=== PATIENT | male | born 1995 | race Hispanic/Latino ===

== ENCOUNTER 2017-03-30 22:01 | Inpatient (IN) | payer MEDICAID ==
--- NOTE | 2017-03-30 23:17 | C.PDOC ---
History Of Present Illness patient wants detox from alcohol and opioid abuse. Last used today, oxycintin 30 mg (2 pills). Denies any suicidal or homicidal ideation Time Seen by Provider: 03/30/17 23:17 Chief Complaint (Nursing): Substance Abuse History Per: Patient History/Exam Limitations: no limitations Onset/Duration Of Symptoms: Hrs Current Symptoms Are (Timing): Still Present Suicide/Self Injury Attempted (Context): None Modifying Factor(s): Alcohol, Narcotics Severity: None Associated Symptoms: denies: Suicidal Thoughts, Suicidal Plan Involuntary Hold By: None Recent travel outside of the [place] States: No Additional History Per: Patient Past Medical History Reviewed: Historical Data, Nursing Documentation, Vital Signs Vital Signs: Last Vital Signs Temp 98.6 F 03/31/17 01:19 Pulse 61 03/31/17 01:19 Resp 19 03/31/17 01:19 BP 128/69 03/31/17 01:19 Pulse Ox 97 03/31/17 01:19 - Medical History PMH: Asthma, Depression Denies: Diabetes, Hepatitis, HIV, HTN, Seizures, Sexually Transmitted Disease - [facility] Procedures DRUG DETOXIFICATION (10/06/14) Family History: States: No Known Family Hx - Social History Hx Tobacco Use: Yes Hx Alcohol Use: Yes Hx Substance Use: Yes - Immunization History Hx Tetanus Toxoid Vaccination: No Hx Influenza Vaccination: Yes Hx Pneumococcal Vaccination: No Review Of Systems Constitutional: Negative for: Fever Eyes: Negative for: Redness ENT: Negative for: Throat Pain Cardiovascular: Negative for: Chest Pain Respiratory: Negative for: Shortness of Breath Gastrointestinal: Negative for: Nausea Musculoskeletal: Negative for: Back Pain Skin: Negative for: Rash Neurological: Negative for: Weakness Psych: Negative for: Anxiety Physical Exam - Physical Exam Appears: Non-toxic, No Acute Distress Skin: Warm, Dry Head: Normacephalic Eye(s): bilateral: Normal Inspection Oral Mucosa: Moist Neck: Supple Lymphatic: Adenopathy Cardiovascular: Rhythm Regular Respiratory: No Rales, No Rhonchi, No Wheezing Gastrointestinal/Abdominal: Soft, No Tenderness Back: Normal Inspection Extremity: Normal ROM Extremity: Bilateral: Atraumatic Pulses: Left Dorsalis Pedis: Normal, Right Dorsalis Pedis: Normal Neurological/Psych: Oriented x3 Gait: Steady ED Course And Treatment - Laboratory Results Result Diagrams: 03/30/17 23:38 03/30/17 23:38 O2 Sat by Pulse Oximetry: [address].: Carlos Bacon Comment: accepted the pt on his service and took over the care at 1:30 AM Doctor Will See Patient In The: Hospital Counseled Patient/Family Regarding: Studies Performed, Diagnosis - Disposition Disposition: HOSPITALIZED Disposition Time: 23:17 Condition: FAIR Forms: [facility] (Irish) - POA Present On Arrival: None - Clinical Impression Clinical Impression: Opiate dependence Decision To Admit - Pt Status Changed To: Hospital Disposition Of: Inpatient - Admit Certification Admit to Inpatient:: After my assessment, the patient will require hospitalization for at least two midnights. This is because of the severity of symptoms shown, intensity of services needed, and/or the medical risk in this patient being treated as an outpatient. - InPatient: Physician Admission Certification: I certify that this patient requires 2 or more midnights of care for the following reason:: After my assessment, the patient will require hospitalization for at least two midnights. This is because of the severity of symptoms shown, intensity of services needed, and/or the medical risk in this patient being treated as an outpatient. - . Bed Request Type: Detox Admitting Physician: Carlos Bacon Patient Diagnosis: Opiate dependence
[2017-03-30 23:45] LABS: EOS # 0.1 K/uL (0.0-0.7); LYMPH # 2.9 K/uL (1.0-4.3); NEUT # 4.8 K/uL (1.8-7.0); RED CELL DISTRIBUTION WIDTH 13.7 % (11.5-14.5); URINE BILIRUBIN NEGATIVE (NEGATIVE); URINE BLOOD NEGATIVE (NEGATIVE); URINE CLARITY Clear (Clear); URINE COLOR Yellow (YELLOW); URINE GLUCOSE (UA) NORMAL (Normal); URINE LEUKOCYTE ESTERASE NEG Leu/uL (Negative); URINE NITRATE NEGATIVE (NEGATIVE); URINE PROTEIN NEGATIVE (NEGATIVE); URINE UROBILINOGEN NORMAL mg/dL (0.2-1.0)
[2017-03-30 23:48] LABS: BASO % 0.4 % (0.0-2.0); EOS % 1.5 % (0.0-4.0); HEMOGLOBIN 14.9 g/dL (12.0-18.0); LYMPH % 34.4 % (20.0-40.0); MEAN CELL VOLUME 84.7 fL (80.0-94.0); MEAN CORPUSCULAR HEMOGLOBIN 29.4 pg (27.0-31.0); MEAN CORPUSCULAR HGB CONC 34.7 g/dL (33.0-37.0); MEAN PLATELET VOLUME 9.6 fL (7.2-11.7); MONO # 0.6 K/uL (0.0-0.8); MONO % 7.6 % (0.0-10.0); NEUT % 56.1 % (50.0-75.0); RBC 5.05 Mil/uL (4.40-5.90)
[2017-03-30 23:49] LABS: WHITE BLOOD COUNT 8.5 K/uL (4.8-10.8)
[2017-03-30 23:57] LABS: ALB/GLOB RATIO 1.4 (1.0-2.1); ALBUMIN 4.3 g/dL (3.5-5.0); ALT/SGPT 72 U/L (21-72); AST/SGOT 42 U/L (17-59); BLOOD UREA NITROGEN 12 mg/dL (9-20); CALCIUM 9.1 mg/dl (8.6-10.4); GFR AFRICAN-AMERICAN > 60; GFR NON-AFRICAN AMERICAN > 60
[2017-03-31 00:03] LABS: BARBITURATES, UR NEGATIVE (NEGATIVE); BENZODIAZEPINES, UR NEGATIVE (NEGATIVE)
[2017-03-31 00:18] LABS: PHENCYCLIDINE, UR NEGATIVE (NEGATIVE)
[2017-03-31 00:26] LABS: OPIATES, UR POSITIVE (NEGATIVE)
[2017-03-31 01:32] VITALS: O2SAT 98
[2017-03-31] MEDS ORDERED: Albuterol HFA 90 mcg/actuation (8 g) INH PRN (04:37)
--- NOTE | 2017-03-31 05:45 | PCM.BM ---
<Aakash Verdugo - Last Filed: 03/31/17 05:43> Treatment Plan Problems - Problems identified on initial assessmt Opiates Abuse Date Initiated: 03/31/17 Time Initiated: 02:10 Assessment reference: NA Status: Active ETOH Abuse Date Initiated: 03/31/17 Time Initiated: 02:10 Assessment reference: NA Status: Active Treatment assets and liabiliti Patient Assests: good support system Patient Liabilities: substance abuse - Milieu Protocol Maintain good personal hygiene: daily Encourage regular showers, daily Remind patient to perform daily oral care Maintain personal safety: every shift Educate patient to report safety concerns to staff, every shift Monitor environment for contraband/sharps Medication safety: Monitor for expected outcome, potential side effects: every shift, Assess barriers to learning: every shift, Assess readiness for medication education: every shift <Shital Villasenor - Last Filed: 03/31/17 08:54> - Diagnosis (1) Opiate dependence Status: Acute Interventions: 03/31/17 08:54 * Assess 7x/week regarding severity of withdrawal * Educate regarding risks, benefits, side effects and alternatives of medications * Use Motivational Interviewing for abstinence * Use CBT for relapse prevention * Medication management for withdrawal symptoms * Encourage medication assisted treatment *
[2017-03-31 06:46] VITALS: RESP 18
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
[2017-03-31 09:42] VITALS: BP 95/65; PULSE 61; TEMP 97.6
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
== END 2017-03-31 13:32 | disposition left against medical advice (07) | DRG 894 ==
LOC: C.ER 22:01 → C.7D 03-31 01:29
DX: F11.20 Opioid dependence, uncomplicated (principal); F10.20 Alcohol dependence, uncomplicated; F17.210 Nicotine dependence, cigarettes, uncomplicated; F31.9 Bipolar disorder, unspecified

== ENCOUNTER 2017-06-04 00:52 | Emergency (ER) | payer MEDICAID ==
--- NOTE | 2017-06-04 03:50 | C.PDOC ---
History Of Present Illness 21 year old male presents to the ER requesting detox from heroin. Patient is also complaining of bilateral foot pain. Denies other complaints at this time. Time Seen by Provider: 06/04/17 02:04 Chief Complaint (Nursing): Substance Abuse History Per: Patient History/Exam Limitations: no limitations Onset/Duration Of Symptoms: Days Current Symptoms Are (Timing): Still Present Suicide/Self Injury Attempted (Context): None Involuntary Hold By: None Recent travel outside of the [place]: No Past Medical History Reviewed: Historical Data, Nursing Documentation, Vital Signs Vital Signs: Last Vital Signs Temp 98.6 F 06/04/17 05:45 Pulse 89 06/04/17 05:45 Resp 20 06/04/17 05:45 BP 123/66 06/04/17 05:45 Pulse Ox 96 06/04/17 05:45 - Medical History PMH: Asthma, Depression - [facility] Procedures DRUG DETOXIFICATION (10/06/14) Family History: States: Unknown Family Hx - Social History Hx Tobacco Use: Yes Hx Alcohol Use: No Hx Substance Use: Yes (HEROIN IV) - Immunization History Hx Tetanus Toxoid Vaccination: No Hx Influenza Vaccination: Yes Hx Pneumococcal Vaccination: No Review Of Systems Constitutional: Negative for: Fever, Chills Gastrointestinal: Negative for: Nausea, Vomiting Musculoskeletal: Positive for: Foot Pain Neurological: Negative for: Weakness, Numbness Physical Exam - Physical Exam Appears: Non-toxic, No Acute Distress Skin: Normal Color, Warm, Dry Head: Atraumatic, Normacephalic Eye(s): bilateral: Normal Inspection Oral Mucosa: Moist Chest: Symmetrical, No Tenderness Cardiovascular: Rhythm Regular Respiratory: Normal Breath Sounds, No Rales, No Rhonchi, No Wheezing Gastrointestinal/Abdominal: Soft, No Tenderness Extremity: Capillary Refill (<2 seconds), No Deformity, Other (Pressure ulcers at soles, pink. No erythema, drainage, or discharge.) Neurological/Psych: Oriented x3, Normal Speech, Normal Motor, Normal Sensation Gait: Steady ED Course And Treatment O2 Sat by Pulse Oximetry: 98 (Room air) Pulse Ox Interpretation: Normal Progress Note: Patient was seen and evaluated by juan carlos who informed patient there are no detox beds available. Patient is requesting to sleep for while before discharge, will allow to sleep before discharge. On reeval. pt is fully ambulatory, AAOx3, stable for discharge. Advised to call crisis office to get prescreened for detox as beds become available Disposition - Disposition Disposition: HOME/ ROUTINE Disposition Time: 06:35 Condition: STABLE Additional Instructions: Please call CRISIS at [phone] Return to ER if worse Instructions: Opioid Use Disorder Forms: [facility] (Serbian) - Clinical Impression Clinical Impression: Drug abuse, Opiate dependence - PA / DIRECTOR OF CLINICAL EDUCATION / Resident Statement MD/DO has reviewed & agrees with the documentation as recorded. - Scribe Statement The provider has reviewed the documentation as recorded by the Scribe Marquise Ponce All medical record entries made by the Noreen were at my direction and personally dictated by me. I have reviewed the chart and agree that the record accurately reflects my personal performance of the history, physical exam, medical decision making, and the department course for this patient. I have also personally directed, reviewed, and agree with the discharge instructions and disposition.
[2017-06-04 05:46] VITALS: PULSE 89
[2017-06-04 07:01] VITALS: BP 120/64; RESP 18; TEMP 98.5; O2SAT 97
== END 2017-06-04 07:00 | disposition home or self-care (01) ==
LOC: SUPCPDRO 00:52 → C.ER 00:52
DX: F11.20 Opioid dependence, uncomplicated (principal)

== ENCOUNTER 2017-06-18 23:52 | Emergency (ER) | payer MEDICAID ==
--- NOTE | 2017-06-19 00:40 | C.PDOC ---
Time Seen by Provider: 06/19/17 00:23 Chief Complaint (Nursing): Psychiatric Evaluation History Per: Patient Onset/Duration Of Symptoms: Days Current Symptoms Are (Timing): Still Present Suicide/Self Injury Attempted (Context): Other (Heroin) Modifying Factor(s): Narcotics, Cocaine Severity: Moderate Associated Symptoms: Depression, Suicidal Thoughts Additional History Per: Prior Records Past Medical History Reviewed: Historical Data, Nursing Documentation, Vital Signs Vital Signs: Last Vital Signs Temp 97.7 F 06/19/17 06:49 Pulse 68 06/19/17 06:49 Resp 16 06/19/17 06:49 BP 123/55 L 06/19/17 06:49 Pulse Ox 99 06/19/17 06:49 - Medical History PMH: Asthma, Bipolar Disorder, Depression, Hepatitis (C), HIV Surgical History: No Surg Hx - [facility] Procedures DRUG DETOXIFICATION (10/06/14) Family History: States: Unknown Family Hx - Social History Hx Tobacco Use: Yes Hx Alcohol Use: No Hx Substance Use: Yes (HEROIN IV, cocaine) - Immunization History Hx Tetanus Toxoid Vaccination: No Hx Influenza Vaccination: Yes Hx Pneumococcal Vaccination: No Review Of Systems Except As Marked, All Systems Reviewed And Found Negative. Constitutional: Negative for: Fever Cardiovascular: Negative for: Chest Pain Respiratory: Negative for: Shortness of Breath Gastrointestinal: Negative for: Vomiting, Abdominal Pain Musculoskeletal: Negative for: Neck Pain Neurological: Negative for: Weakness, Numbness Physical Exam - Physical Exam Appears: Non-toxic, No Acute Distress Skin: Normal Color, Warm, Dry Head: Atraumatic, Normacephalic Eye(s): bilateral: PERRL, EOMI Neck: Normal ROM, Supple Cardiovascular: Rhythm Regular Respiratory: Normal Breath Sounds, No Accessory Muscle Use Gastrointestinal/Abdominal: Soft, No Tenderness Extremity: Normal ROM, Other (Track napier on arms) Neurological/Psych: Oriented x3, Normal Motor, Normal Sensation ED Course And Treatment - Laboratory Results Result Diagrams: 06/19/17 01:01 06/19/17 01:01 ECG: Interpreted By Me, Viewed By Me ECG Rhythm: Sinus Rhythm ECG Interpretation: No Acute Changes Rate From EC O2 Sat by Pulse Oximetry: 97 Pulse Ox Interpretation: Normal - Radiology CXR: Interpreted by Me, Viewed By Me CXR Interpretation: Yes: No Acute Disease Progress Note: Pt is medically stable for psych admission. Disposition - Disposition Disposition Time: :02 Condition: STABLE Forms: [email or web address] (Angolan) - Clinical Impression Clinical Impression: Depression, Drug abuse Physician Patient Turnover Patient Signed Over To: Mary Wolfe Handoff Comments: pending psychiatric transfer.
[2017-06-19 01:04] LABS: BASO % 0.8 % (0.0-2.0); EOS # 0.2 K/uL (0.0-0.7); EOS % 3.5 % (0.0-4.0); HEMOGLOBIN 14.1 g/dL (12.0-18.0); LYMPH # 1.9 K/uL (1.0-4.3); LYMPH % 34.6 % (20.0-40.0); MEAN CELL VOLUME 85.4 fL (80.0-94.0); MEAN CORPUSCULAR HEMOGLOBIN 29.7 pg (27.0-31.0); MEAN CORPUSCULAR HGB CONC 34.8 g/dL (33.0-37.0); MEAN PLATELET VOLUME 9.3 fL (7.2-11.7); MONO # 0.8 K/uL (0.0-0.8); MONO % 14.2 % (0.0-10.0); NEUT # 2.6 K/uL (1.8-7.0); NEUT % 46.9 % (50.0-75.0); NRBC % 0.1 % (0.0-2.0); RBC 4.75 Mil/uL (4.40-5.90); RED CELL DISTRIBUTION WIDTH 13.1 % (11.5-14.5); WHITE BLOOD COUNT 5.5 K/uL (4.8-10.8)
[2017-06-19 01:18] LABS: ACETAMINOPHEN < 10.0 ug/mL (10.0-30.0); ALB/GLOB RATIO 1.3 (1.0-2.1); ALBUMIN 3.9 g/dL (3.5-5.0); ALT/SGPT 38 U/L (21-72); AST/SGOT 32 U/L (17-59); BLOOD UREA NITROGEN 10 mg/dL (9-20); GFR AFRICAN-AMERICAN > 60; GFR NON-AFRICAN AMERICAN > 60; SALICYLATE < 1.0 mg/dL 1
[2017-06-19 01:27] LABS: SQUAMOUS EPITHIAL < 1 /hpf (0-5); URINE BACTERIA RARE (<OCC); URINE BILIRUBIN 1+ (NEGATIVE); URINE BLOOD NEGATIVE (NEGATIVE); URINE CLARITY Hazy (Clear); URINE COLOR Amber (YELLOW); URINE GLUCOSE (UA) NORMAL (Normal); URINE LEUKOCYTE ESTERASE NEG Leu/uL (Negative); URINE PROTEIN 1+ mg/dL (NEGATIVE)
[2017-06-19 02:00] LABS: BARBITURATES, UR NEGATIVE (NEGATIVE); BENZODIAZEPINES, UR NEGATIVE (NEGATIVE); PHENCYCLIDINE, UR NEGATIVE (NEGATIVE)
[2017-06-19 02:27] LABS: OPIATES, UR POSITIVE (NEGATIVE)
--- NOTE | 2017-06-19 08:39 | RAD ---
PROCEDURE: CHEST RADIOGRAPH, 1 VIEW HISTORY: Psych clearance COMPARISON: None available. FINDINGS: LUNGS: Clear. PLEURA: No pneumothorax or pleural fluid seen. CARDIOVASCULAR: Normal. OSSEOUS STRUCTURES: No significant abnormalities. VISUALIZED UPPER ABDOMEN: Normal. OTHER FINDINGS: None. IMPRESSION: No active disease.
[2017-06-19 10:13] VITALS: BP 101/57; PULSE 60; RESP 18; TEMP 98.2; O2SAT 98
== END 2017-06-19 10:32 | disposition short-term general hospital (02) ==
LOC: C.ER 23:52
DX: F32.9 Major depressive disorder, single episode, unspecified (principal); F19.10 Other psychoactive substance abuse, uncomplicated

== ENCOUNTER 2017-08-20 19:35 | Emergency (ER) | payer MEDICAID ==
[2017-08-20 19:35] VITALS: BMI 23.1
--- NOTE | 2017-08-20 20:09 | C.PDOC ---
History Of Present Illness 21-year-old male, presents to the emergency department requesting detox from alcohol and heroin. Patient denies SI/HI, nausea/vomiting, fever, chills, chest pain, shortness of breath or any other associated symptoms. No other complaints at this time. Last use was yesterday Chief Complaint (Nursing): Substance Abuse History Per: Patient History/Exam Limitations: no limitations Current Symptoms Are (Timing): Still Present Severity: Moderate Past Medical History Reviewed: Historical Data, Nursing Documentation, Vital Signs Vital Signs: Last Vital Signs Temp 97.9 F 08/20/17 22:39 Pulse 68 08/20/17 22:39 Resp 20 08/20/17 22:39 BP 111/57 L 08/20/17 22:39 Pulse Ox 99 08/20/17 22:39 - Medical History PMH: Anxiety, Asthma, Bipolar Disorder, Depression, Hepatitis (C), HIV Denies: Diabetes, HTN, Seizures, Sexually Transmitted Disease - [facility] Procedures DRUG DETOXIFICATION (10/06/14) GROUP PSYCHOTHERAPY (06/19/17) INDIV PSYCHOTHERAPY FOR SUBSTANCE ABUSE, COGNITIV BEHAVIORAL (06/19/17) INDIVIDUAL PSYCHOTHERAPY, COGNITIVE-BEHAVIORAL (06/19/17) Family History: States: No Known Family Hx - Social History Hx Tobacco Use: Yes Hx Alcohol Use: Yes Hx Substance Use: Yes (HEROIN IV, cocaine) - Immunization History Hx Tetanus Toxoid Vaccination: No Hx Influenza Vaccination: Yes Hx Pneumococcal Vaccination: No Review Of Systems Constitutional: Negative for: Fever, Chills Cardiovascular: Negative for: Chest Pain, Palpitations Respiratory: Negative for: Shortness of Breath Gastrointestinal: Negative for: Nausea, Vomiting Neurological: Negative for: Weakness, Numbness, Headache, Dizziness Physical Exam - Physical Exam Appears: Non-toxic, No Acute Distress Skin: Normal Color, Warm, Dry, No Rash Head: Atraumatic, Normacephalic Eye(s): bilateral: Normal Inspection, PERRL, EOMI Nose: Normal Oral Mucosa: Moist Neck: Normal ROM Cardiovascular: Rhythm Regular, No Murmur Respiratory: Normal Breath Sounds, No Accessory Muscle Use Extremity: Normal ROM, No Deformity, No Swelling Neurological/Psych: Oriented x3, Normal Speech ED Course And Treatment - Laboratory Results Result Diagrams: 08/20/17 21:01 08/20/17 21:01 O2 Sat by Pulse Oximetry: 96 (RA) Pulse Ox Interpretation: Normal Disposition - Disposition Referrals: [facility] [Outside] [facility] [Outside] Disposition: HOME/ ROUTINE Disposition Time: 21:55 Condition: GOOD Additional Instructions: FELIPE ADAMS, thank you for letting us take care of you today. Your provider was Ras Martin DO and you were treated for DETOX. The emergency medical care you received today was directed at your acute symptoms. If you were prescribed any medication, please fill it and take as directed. It may take several days for your symptoms to resolve. Return to the Emergency Department if your symptoms worsen, do not improve, or if you have any other problems. Please contact your doctor or call one of the physicians/clinics you have been referred to that are listed on the Patient Visit Information form that is included in your discharge packet. Bring any paperwork you were given at discharge with you along with any medications you are taking to your follow up visit. Our treatment cannot replace ongoing medical care by a primary care provider outside of the emergency department. Thank you for allowing the [facility] team to be part of your care today. Follow up with the crisis team tomorrow for detox bed availability. Follow up with the clinic for outpatient medical care. Instructions: Drug Abuse and Drug Addiction (DC) Forms: [employer] (Latvian) - Clinical Impression Clinical Impression: Drug dependence - Scribe Statement The provider has reviewed the documentation as recorded by the Scribe (Celina Hernández) All medical record entries made by the Scribe were at my direction and personally dictated by me. I have reviewed the chart and agree that the record accurately reflects my personal performance of the history, physical exam, medical decision making, and the department course for this patient. I have also personally directed, reviewed, and agree with the discharge instructions and disposition.
[2017-08-20 21:05] LABS: BASO # 0.1 K/uL (0.0-0.2); BASO % 0.6 % (0.0-2.0); EOS # 0.1 K/uL (0.0-0.7); EOS % 0.7 % (0.0-4.0); HEMOGLOBIN 14.4 g/dL (12.0-18.0); LYMPH # 1.3 K/uL (1.0-4.3); LYMPH % 14.9 % (20.0-40.0); MEAN CELL VOLUME 84.3 fL (80.0-94.0); MEAN CORPUSCULAR HEMOGLOBIN 28.3 pg (27.0-31.0); MEAN CORPUSCULAR HGB CONC 33.5 g/dL (33.0-37.0); MEAN PLATELET VOLUME 9.1 fL (7.2-11.7); MONO # 0.6 K/uL (0.0-0.8); MONO % 6.9 % (0.0-10.0); NEUT # 6.9 K/uL (1.8-7.0); NEUT % 76.9 % (50.0-75.0); NRBC % 0.2 % (0.0-2.0); RBC 5.11 Mil/uL (4.40-5.90); RED CELL DISTRIBUTION WIDTH 13.3 % (11.5-14.5); WHITE BLOOD COUNT 8.9 K/uL (4.8-10.8)
[2017-08-20 21:20] LABS: ALB/GLOB RATIO 1.4 (1.0-2.1); ALBUMIN 4.6 g/dL (3.5-5.0); ALT/SGPT 55 U/L (21-72); AST/SGOT 37 U/L (17-59); BLOOD UREA NITROGEN 13 mg/dL (9-20); CALCIUM 9.4 mg/dl (8.6-10.4); GFR AFRICAN-AMERICAN > 60; GFR NON-AFRICAN AMERICAN > 60
[2017-08-20 22:41] VITALS: BP 111/57; PULSE 68; RESP 20; TEMP 97.9
[2017-08-21 00:34] VITALS: O2SAT 96
== END 2017-08-20 22:39 | disposition home or self-care (01) ==
LOC: C.ER 19:35
DX: F19.20 Other psychoactive substance dependence, uncomplicated (principal)

== ENCOUNTER 2017-12-03 00:08 | Emergency (ER) | payer SELFPAY ==
[2017-12-03 00:08] VITALS: BMI 23.1
--- NOTE | 2017-12-03 00:52 | C.PDOC ---
History Of Present Illness MONIE, presents to the ED due to public intoxication after being found on the street. The patient admits to using heroin and cocaine. The patient denies any SI or HI. He offers no further medical complaints at this time. Time Seen by Provider: 12/03/17 00:52 Chief Complaint (Nursing): Substance Abuse History Per: Patient History/Exam Limitations: no limitations Onset/Duration Of Symptoms: Hrs Current Symptoms Are (Timing): Still Present Suicide/Self Injury Attempted (Context): None Modifying Factor(s): Cocaine, Other (Heroin) Severity: None Associated Symptoms: denies: Paranoia Recent travel outside of the [place]: No Additional History Per: EMS Past Medical History Reviewed: Historical Data, Nursing Documentation, Vital Signs Vital Signs: Last Vital Signs Temp 98.6 F 12/03/17 00:23 Pulse 84 12/03/17 00:23 Resp 20 12/03/17 00:23 BP 117/69 12/03/17 00:23 Pulse Ox 99 12/03/17 00:23 - Medical History PMH: Anxiety, Asthma, Bipolar Disorder, Depression, Hepatitis (C), HIV Denies: Diabetes, HTN, Seizures, Sexually Transmitted Disease Surgical History: No Surg Hx - [facility] Procedures DRUG DETOXIFICATION (10/06/14) GROUP PSYCHOTHERAPY (06/19/17) INDIV PSYCHOTHERAPY FOR SUBSTANCE ABUSE, COGNITIV BEHAVIORAL (06/19/17) INDIVIDUAL PSYCHOTHERAPY, COGNITIVE-BEHAVIORAL (06/19/17) Family History: States: Unknown Family Hx - Social History Hx Tobacco Use: Yes Hx Alcohol Use: Yes Hx Substance Use: Yes (HEROIN IV, cocaine) - Immunization History Hx Tetanus Toxoid Vaccination: No Hx Influenza Vaccination: Yes Hx Pneumococcal Vaccination: No Review Of Systems Review Of Systems: ROS cannot be obtained secondary to pt's inabilty to answer questions. Constitutional: Negative for: Fever Psych: Negative for: Suicidal ideation Physical Exam - Physical Exam Appears: Non-toxic, No Acute Distress Skin: Warm, Dry Head: Normacephalic Eye(s): bilateral: Normal Inspection Oral Mucosa: Moist Neck: Trachea Midline, Supple Chest: Symmetrical Cardiovascular: Rhythm Regular Respiratory: No Rales, No Rhonchi, No Wheezing Gastrointestinal/Abdominal: Soft, No Tenderness, No Distention Extremity: Normal ROM Extremity: Bilateral: Normal Color And Temperature Neurological/Psych: Oriented x3 Gait: Steady ED Course And Treatment O2 Sat by Pulse Oximetry: 99 (RA) Pulse Ox Interpretation: Normal Reevaluation Time: 05:35 Reassessment Condition: Improved Disposition Counseled Patient/Family Regarding: Studies Performed, Diagnosis, Need For Followup - Disposition Referrals: [facility] [Outside] Disposition: HOME/ ROUTINE Disposition Time: 00:52 Condition: FAIR Instructions: Polysubstance Abuse (DC) Forms: [employer] (Micronesian) - Clinical Impression Clinical Impression: Polysubstance abuse - 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 - Scribe Statement The provider has reviewed the documentation as recorded by the Scribe (Joi Albrecht) Provider Attestation: All medical record entries made by the Scribe were at my direction and personally dictated by me. I have reviewed the chart and agree that the record accurately reflects my personal performance of the history, physical exam, medical decision making, and the department course for this patient. I have also personally directed, reviewed, and agree with the discharge instructions and disposition.
[2017-12-03 05:51] VITALS: BP 115/49; PULSE 76; RESP 20; TEMP 97.8; O2SAT 96
== END 2017-12-03 06:37 | disposition home or self-care (01) ==
LOC: C.ER 00:08
DX: F19.10 Other psychoactive substance abuse, uncomplicated (principal); Z72.0 Tobacco use